=== PATIENT | female | born 1985 | race Caucasian/White ===

== ENCOUNTER 2017-05-15 01:29 | Inpatient (IN) ==
--- OUTSIDE RECORDS SUMMARY | 2017-05-15 01:33 | External Medical Summary | Continuity of Care Document ---
:1985 Author Organization [facility] Address [address] [place], [place] [id number] Phone Care Team Providers Name Role Phone Tristan Wilks MD, FAAFP Unavailable Unavailable Allergies, Adverse Reactions, Alerts Substance Reaction Severity Status No Known Drug Allergies Unknown Active Medications Medication Instructions Dosage Effective Dates Status Comments (start - stop) ferrous sulfate take 1 tablet by 325 MG - Active 325 mg (65 mg oral route 2 times iron) tablet every day Tums 200 mg - Active calcium (500 mg) chewable tablet Prena1 30 mg take 1 capsule by Not Available - Active iron-1 mg-200 mg oral route every capsule day with a meal Tylenol 325 mg take 1 tablet by - Active tablet oral route every 4 hours as needed Problems Condition Effective Dates (start - stop) Clinical Status Follow-Up, Routine - Encounter for suprvsn of normal - , third trimester 31 weeks gestation of - Encounter for suprvsn of normal - , second trimester 16 weeks gestation of - Encntr screen for infections w sexl - mode of transmiss Encounter for screening for oth - infec/parastc diseases Encounter for suprvsn of normal - , first trimester Encounter for screening of - mother 13 weeks gestation of - Routine Care, Primagravida 39 weeks gestation of - Encounter for suprvsn of normal - , second trimester 25 weeks gestation of - Encounter for suprvsn of normal - , second trimester 21 weeks gestation of - Encounter for suprvsn of normal - , third trimester 34 weeks gestation of - Encounter for suprvsn of normal - , third trimester 29 weeks gestation of - Encounter for screening of - mother 21 weeks gestation of - Threatened , Antepartum - Active Active Procedures Procedure Date Immuniz admnin, 1 vac, sngl/combo 19 Yrs + TDAP VACCINE >7 IM OB Visit No Charge Results Test Name Date and Time Measure Units Reference Range Abnormal Flag Comments Unknown Advance Directives Directive Yes / No Effective Date File Name Unknown Encounters Encounter Practice Location Reason(s) Diagnoses Date Provider Care Team Description For Visit Members Jamar Brewer Encounter for Sobbing Referring In Womens suprvsn of normal 0-201 [place]. Provider: Health HARRIET, , third 7 [address] [id number] weeks Medical Enrique R, 1522, gestation of Center [address] [place] [address], [address] [id number], 120, Bhavik 120, [place] Brewer, tel: [place], [phone], [id number]. [place]. tel: tel: [phone] Jamar Brewer Encounter for Oct-1 Enrique Referring In Womens suprvsn of normal 3-201 [place]. 700 Provider: Health HARRIET, , third 7 Medical [place] [address] [email or web address] weeks [place] [address] 1522, gestation of Bhavik Pena, 120, Center [place] Amaya, [facility] 120, [id number], [place], [id number] [place], tel: , [place]. [phone]. [id number] tel: tel: [phone] Jamar Brewer Sep-2 Enrique In Womens 9-201 [place]. 700 Health HARRIET, 7 Medical [address] Box Center 1522, Bhavik Pena, 120, [place], [id number], [place], [place] [id number] tel: , [place]. tel: [phone] Jamar Brewer Encounter for Sep-2 Enrique Referring In Womens suprvsn of normal 8-201 [place]. 700 Provider: Health HARRIET, , third 7 Medical [place] [address] Box [id number] weeks [facility], 700 1522, gestation of Bhavik Pena, 120, Center [place] Amaya, [facility] 120, , [place], [place] [id number] [place], tel: , [place]. [id number]. tel: tel:[phone] Jamar Brewer Encounter for Aug-3 Enrique Referring In Womens suprvsn of normal 1-201 [place]. 700 Provider: Health HARRIET, , second 7 Medical Barbara [address] Box [email or web address] weeks [facility], [facility] 1522, gestation of Bhavik Pena, 120, Center [place] Amaya, [facility] 120, , [place] [id number] [place], tel:+ , [place]. [id number]. tel: tel:+ [phone] Jamar Brewer Encounter for Aug-0 Enrique Referring In Womens suprvsn of normal 3-201 [place]. 700 Provider: Saeed LARIOS, , second 7 Medical [place] PO Box weeks [facility], [facility] 1522, gestation of Bhavik Pena, 120, Center [place] Amaya, [facility] 120, , [place], [place] [id number] [place], tel: , [place]. [id number]. tel: tel:[phone] Jamar Brweer Encounter for Aug-0 Enrique Referring In Womens Ultrasound 3-201 [place]. 700 Provider: Saeed LARIOS, screening of 7 Medical [place] [address] [id number] weeks [facility], 700 1522, gestation of Bhavik Pena, 120, Center [place] Amaya, Bhavik 120, [id number], [place], [place] [id number] [place], tel:[phone] , [place]. [id number]. tel: tel:+ [phone] Jamar Brewer Encounter for Louis-2 Enrique Referring In Womens suprvsn of normal 7-201 [place]. 700 Provider: Saeed LARIOS, , second 7 Medical Barbara [address] [id number] weeks Center [facility], 700 1522, gestation of Dr, Bhavik Andino, 120, Center [address] [place], [place], [place] [address], [id number], [place], [id number] [place], tel: , [place]. [id number]. tel: tel:[phone] Jamar Brewer Encntr screen for Louis-0 Enrique Referring In Womens infections w sexl 8-201 [place]. 700 Provider: Saeed LARIOS, mode of 7 Medical [place] PO Box transmissEncounte [facility], 700 1522, r for screening Bhavik Pena, for oth 120, Center Dr [place], infec/parastc Brewer, [place] [address], [id number], [facility] for suprvsn of [id number] [place], tel: normal , , [place]. [id number]. first tel: tel: trimesterEncounte [phone] r for screening of [id number] weeks gestation of Jamar Brewer Nov-1 Enrique Referring In Womens Follow-Up, 3-201 [place]. 700 Provider: Saeed LARIOS, Routine 5 Medical [place] PO Box [facility], 700 1522, Dr [facility], 120, Center [address] [place], [place], [facility] 120, [id number], [place], [id number] [place], tel: , [place]. [id number]. tel: tel: [phone] Jamar Brewer Routine Care, Oct-0 Enrique Referring In Womens [id number] 1-201 [place]. 700 Provider: Saeed LARIOS, weeks gestation 5 Medical [place] PO Box of [facility], 700 1522, Bhavik Pena, 120, Center [place] Amaya, [facility] 120, [id number], [place], [id number] [place], tel: , [place]. [id number]. tel: tel: [phone] [facility] Sep-0 Enrique Referring In Womens 9-201 [place]. 700 Provider: Health [place], 5 [facility] Enrique R, 1522, , [address], 120, [facility] [id number], [place], [facility] 120, [place] [id number] [place], tel: , [place]. [place], tel: [phone]. [phone] tel:[phone] [facility] [place] Jul-2 Enrique Referring In Womens 5-201 [place]. 700 Provider: Health [place], [facility] [address] [place], 700 1522, , [facility], [facility], [place] Amaya, [facility] 120, [id number], [place], [id number] [place], tel: , [place]. [id number]. tel: tel: [phone] [facility] [place] Jul- Jaye Referring In Womens 1-201 [facility]. Provider: Health HARRIET, [address] [place] [address], 700 1522, [place] [address], [facility] Dr S[place], 120, Bhavik 120, [id number], [place] Brewer, [place], [place], tel: [phone]. , [place]. tel: tel: [phone] Family History Family Member Diagnosis Age At Onset Maternal Grandfather Diabetes mellitus No family history of Epilepsy No family history of Ovarian Cancer No family history of Colon Cancer Paternal Grandmother Uterine Cancer No family history of Osteoporosis No family history of Breast Cancer Mother Hypertension Maternal Grandmother Stroke No family history of Cardiovascular Disease No family history of Kidney Disease Maternal Grandmother Hypertension No family history of Thyroid Disorder No family history of Lung Disease Immunizations Vaccine Date Status Comments Influenza, injectable, completed Source: New Immunization Record quadrivalent, preservative free, 3 yrs or older Tdap completed Source: New Immunization Record Tdap completed Source: New Immunization Record Payers Payer name Insurance type Covered republican ID Authorization(s) [place] [id number] [place] [id number] [place] [id number] [place] [id number] Social History Type Description Quantity Date Captured Alcohol Use Details No Caffeine Use Details Unknown Tobacco Use Status Unknown Smoking Status Never smoker Vital Signs Date / Height Weight BMI Pulse Blood Temperature Respiratory Body Head BMI Time: Rate Pressure Rate Surface Circumference percentile Area 146.20 36.5 124/ lbs 9 mm[Hg] 2:57 kg/m PM eter (2) Chief Complaint And Reason For Visit Unknown Chief Complaint And Reason For Visit Reason For Referral Reason For Referral Unknown Plan Of Care Date Type Action Status Appointment Sreedhar Lou BOOKED Appointment Sreedhar Lou BOOKED Appointment Sreedhar Lou BOOKED Appointment Sreedhar Lou BOOKED Future Order: Lab Order Pap Smear With HPV Reflex If ASCUS Ordered (WPMPap1) Future Order: Radiology Order Complete OB Ultrasound > 14 Ordered Weeks ([id number]) Date Type Problem Goal Intervention Status Start Date Unknown. History Of Present Illness Encounter Date Complaint History Of Present Illness This patient has no known history of present illness Functional Status Encounter Date Functional Assessment Cognitive Assessment Unknown Medications Administered Medication Instructions Dosage Effective Dates (start - stop) Status Comments Drug Treatment Unknown Instructions Date Instruction Additional Information HIV and other routine tests risk factors identified by history anticipated course of care nutrition and weight gain counseling, special diet toxoplasmosis precautions (cats / raw meat) sexual activity exercise indications for ultrasound influenza vaccine environmental / work hazards travel use of any medications (including supplements, vitamins, herbs, OTC drugs) domestic violence seat belt use childbirth classes / hospital facilities hospital registration genetic testing Zika virus assessment & precautions risk factors identified by history anticipated course of care nutrition and weight gain counseling, special diet toxoplasmosis precautions (cats / raw meat) HIV and other routine tests sexual activity exercise indications for ultrasound influenza vaccine environmental / work hazards travel use of any medications (including supplements, vitamins, herbs, OTC drugs) domestic violence seat belt use childbirth classes / hospital facilities hospital registration genetic testing new ob handbook
[2017-05-15] MEDS ORDERED: CALCIUM CARBONATE Chewable 500mg TABLET PO PRN ×2 (01:34→10:42)
[2017-05-15] MEDS ORDERED: ACETAMINOPHEN 500 MG TABLET PO PRN ×2 (01:34→10:42)
[2017-05-15] MEDS ORDERED: MAG-AL + SIM ORAL LIQUID 30ml PO PRN ×2 (01:34→10:42)
[2017-05-15] MEDS ORDERED: METHYLERGONOVINE 0.2 MG/ML INJECTION IM PRN (01:34)
[2017-05-15] MEDS ORDERED: LIDOCAINE 1% (10mg/ml) 2mL INJ PF SDV ID PRN (01:34)
[2017-05-15] MEDS ORDERED: CARBOPROST 250 MCG/ML INJECTION IM PRN (01:34)
--- OUTSIDE RECORDS SUMMARY | 2017-05-15 01:34 | External Medical Summary | Continuity of Care Document ---
:1985 Author Organization [facility] Address [address] [place], [place] [id number] Phone Care Team Providers Name Role Phone Tristan Wilks MD, FAAFP Unavailable Unavailable Allergies, Adverse Reactions, Alerts Substance Reaction Severity Status No Known Drug Allergies Unknown Active Medications Medication Instructions Dosage Effective Dates Status Comments (start - stop) Tums 200 mg - Active calcium (500 [...] 39 weeks gestation of - Encounter for screening of - mother 21 weeks gestation of - Threatened , Antepartum - Active Active Procedures Procedure Date OB Visit No Charge Aug-03-2017 Results Test Name Date and Time Measure Units Reference Range Abnormal Flag Comments Unknown Advance Directives Directive Yes / No Effective Date File Name Unknown Encounters Encounter Practice Location Reason(s) Diagnoses Date Provider Care Team Description For Visit Members Jamar Brewer Encounter for Aug-0 Enrique Referring In Womens suprvsn of normal 3-201 [place]. 700 Provider: Saeed LARIOS, , second 7 Medical [place] [address] [id number] weeks [facility], 700 1522, gestation of Bhavik Pena, 120, [place] Amaya, [facility] 120, , [place], [id number] [place], tel: , [place]. [id number]. tel: tel: [phone] Jamar Brewer Encounter for Aug-0 Enrique Referring In Womens Ultrasound 3-201 [place]. 700 Provider: Saeed LARIOS, screening of 7 Medical [place] [address] Box [id number] weeks [facility], [facility] 1522, gestation of Bhavik Pena, 120, [place] Amaya, [facility] 120, , [place], [id number] [place], tel: , [place]. [id number]. tel: tel: [phone] Jamar Brewer Encounter for Louis-2 Enrique Referring In Womens suprvsn of normal 7-201 [place]. 700 Provider: Saeed LARIOS, , second 7 Medical [place] [address] Box [id number] weeks [facility], [facility] 1522, gestation of Bhavik Pena, 120, [place] Amaya, [facility] 120, , [place], [id number] [place], tel: , [place]. [id number]. tel: tel:[phone] Jamar Brewer Encntr screen for Louis-0 Enrique Referring In Womens infections w sexl 8-201 [place]. 700 Provider: Saeed LARIOS, mode of 7 Medical [place] PO Box transmissEncounte [facility], 700 1522, r for screening Bhavik Pena, for oth 120, [place] Dr [place], infec/parastc [place], [facility] 120, [id number], diseasesEncounter [place], [place], for suprvsn of [id number] [place], tel: normal , , [place]. [id number]. first tel: [facility]: [facility] [phone] r for screening of [id number] weeks gestation of Jamar Brewer Apr- Enrique Referring In Womens Follow-Up, 3- [place]. 700 Provider: Saeed LARIOS, Routine 5 Medical [place] PO Box [facility], [facility] 1522, , [facility], 120, [place] [address] [place], [place], [facility] 120, [id number], [place], [place], [id number] [place], tel: , [place]. [id number]. tel: tel: [phone] Jamar Brewer Routine Care, Mar-0 Enrique Referring In Womens [id number] 1- [place]. 700 Provider: Saeed LARIOS, weeks gestation 5 Medical [place] PO Box of [facility], [facility] 1522, , [facility], 120, [place] Amaya, [facility] 120, [id number], [place], Brew[place], [id number] [place], tel: , [place]. [id number]. tel: tel: [phone] Jamar Brewer Sep-0 Enrique Referring In Womens 9-201 [place]. 700 Provider: Health HARRIET, 5 [facility] Enrique R, 1522, , [address], 120, Medical [place], [place] [id number], [place], [facility] 120, [place] [id number] [place], tel: , [place]. [place], tel: [phone]. [phone] tel:[phone] Jamar Brewer Jul-2 Enrique Referring In Womens -201 [place]. 700 Provider: Health HARRIET, 5 Medical [place] PO Box [facility], [facility] 1522, , [facility], 120, Center [place] Amaya, [facility] 120, [id number], [place], [id number] [place], tel: , [place]. [phone]. [id number] tel: tel: [phone] Jamar Brewer Jaye Referring In Womens 1-201 [place]. Provider: Saeed LARIOS, 5 700 [place] [address] Box Medical [place], 700 1522, [place] [address], [address] [place] [address] [place], 120, Bhavik 120, [id number], [place] Brewer, [place], tel: [phone]. [phone] , . tel: tel: [phone] Family History Family Member Diagnosis Age At [...] Lung Disease Immunizations Vaccine Date Status Comments Tdap completed Source: New Immunization Record Payers Payer name Insurance type Covered alliance party ID Authorization(s) [facility] [id number] [facility] [id number] Social History Type Description Quantity Date Captured Alcohol Use Details No Caffeine Use Details Unknown Tobacco Use Status Unknown Smoking Status Never smoker Vital Signs Date / Height Weight BMI Pulse Blood Temperature Respiratory Body Head BMI Time: Rate Pressure Rate Surface Circumference percentile Area 132.20 33.0 120/ lbs 9 mm[Hg] 4:23 kg/m PM eter (2) Chief Complaint And Reason For Visit Unknown Chief Complaint And Reason For Visit Reason For Referral Reason For Referral Unknown Plan Of Care Date Type Action Status Appointment Sreedhar Lou BOOKED Future Order: Lab Order Pap Smear With HPV Reflex If ASCUS Ordered (WPMPap1) Future Order: Radiology Order Complete OB Ultrasound > 14 Ordered Weeks ([id number]) Date Type Problem Goal Intervention Status Start [...]
--- OUTSIDE RECORDS SUMMARY | 2017-05-15 01:34 | External Medical Summary | Continuity of Care Document ---
:1984 Author Organization [facility] Address [address] [place], [place] [id number] Phone Care Team Providers Name Role Phone [...] Antepartum - Active Active Procedures Procedure Date Unknown Results Test Name Date and Time Measure Units Reference Range Abnormal Flag Comments Unknown Advance Directives Directive Yes / No Effective Date File Name Unknown Encounters Encounter Practice Location Reason(s) Diagnoses Date Provider Care Team Description For Visit Members Jamar Brewer Encounter for Mar- Enrique Referring In Womens suprvsn of normal 3-201 [place]. 700 Provider: Saeed LARIOS, , third 7 Medical [place] PO Box weeks [facility], [facility] 1522, gestation of Bhavik Pena, 120, [address] [place], [place], [place] [address], [id number], [place], [place], [id number] [place], tel:+ , [place]. [id number]. tel: tel: [phone] Jamar Brewer Sep-2 Enrique In Womens 9-201 [place]. 700 Saeed LARIOS, 7 Medical PO Box Center 1522, Bhavik Pena, 120, [place], [id number], [place], [place] [id number] tel: , [place]. tel: [phone] Jamar Brewer Encounter for Sep-2 Enrique Referring In Womens suprvsn of normal 8-201 [place]. 700 Provider: Health HARRIET, , third 7 Medical [place] PO Box [id number] weeks [facility], [facility] 1522, gestation of Bhavik Pena, 120, Center [place] Amaya, [facility] 120, [id number], [place], [id number] [place], tel:2 , [place]. [id number]. tel: tel: [phone] Jamar Brewer Encounter for Jan- Enrique Referring In Womens suprvsn of normal 1-201 [place]. 700 Provider: Health HARRIET, , second 7 Medical [place] PO Box [id number] weeks [facility], [facility] 1522, gestation of Bhavik Pena, 120, Center [facility] [facility], [id number], [place], [id number] [place], tel:+ , [place]. [id number]. tel: tel:[phone] Jamar Brewer Encounter for Aug-0 Enrique Referring In Womens suprvsn of normal 3-201 [place]. 700 Provider: Saeed LARIOS, , second 7 Medical [place] PO Box [id number] weeks [facility], [facility] 1522, gestation of Bhavik Pena, 120, [place] Amaya, [facility] 120, , [place], [id number] [place], tel:+ , [place]. [id number]. tel: tel:[phone] Brewer Encounter for Aug-0 Enrique Referring In Womens Ultrasound 3-201 [place]. 700 Provider: Saeed LARIOS, screening of 7 Medical [place] PO Box [id number] weeks [facility], [facility] 1522, gestation of Bhavik Pena, 120, [place] Amaya, [facility] 120, [id number], [place], [id number] [place], tel:+ , [place]. [id number]. tel: tel:[phone] Jamar Brewer Encounter for Louis-2 Enrique Referring In Womens suprvsn of normal 7-201 [place]. 700 Provider: Saeed LARIOS, , second 7 Medical Barbara PO Box [id number] weeks [place] [address] 1522, gestation of Bhavik Pena, 120, [place] Amaya, [facility] 120, [id number], [place], [id number] [place], tel:+ , [place]. [id number]. tel: tel:[phone] Brewer Encntr screen for Louis-0 Enrique Referring In Womens infections w sexl 8-201 [place]. 700 Provider: Saeed LARIOS, mode of 7 Medical [place] PO Box transmissEncounte [facility], 700 1522, r for screening , [facility] Sina, for oth 120, Center Dr [place], infec/parastc Brewer, [facility] 120, [id number], diseasesEncounter [place], [place], for suprvsn of [id number] [place], tel: normal , , [place]. [id number]. first tel: tel: trimesterEncounte [phone] r for screening of [id number] weeks gestation of Jamar Brewer Enrique Referring In Womens Follow-Up, 3- [place]. 700 Provider: Health HARRIET, Routine 5 Medical Barbara PO Box [facility], 700 1522, Dr [facility] Javi Andino, 120, Center Dr [place], [place], [facility] 120, [id number], [place], [place], [id number] [place], tel: , [place]. [id number] tel: tel: [phone] Jamar Brewer Routine Care, Enrique Referring In Womens [id number] 1-201 [place]. 700 Provider: Health HARRIET, weeks gestation 5 Medical Barbara PO Box of [facility], 700 1522, Dr [facility] Sina, 120, Center [address] S[place], [place], [facility] 120, [id number], [place], [place], [id number] [place], tel: , [place]. [id number] tel: tel: [phone] Jamar Brewer Sep-0 Enrique Referring In Womens 9-201 [place]. 700 Provider: Health HARRIET, 5 [facility] [place] PO Box [place] Enrique R, 1522, , [facility] Denae Andino, 120, Medical [place], [place] , [place], [facility] 120, [place] [id number] [place], tel: , [place]. [place] tel: [phone]. [phone] tel:[phone] Jamar Brewer Fe-2 Enrique Referring In Womens 5-201 [place]. 700 Provider: Health [place], 5 Medical Barbara PO Box Center [place], 700 1522, , [facility] Medical Sina, 120, [address] [place], [place], Bhavik 120, [id number], [place], [id number] [place], tel: , . [phone]. [id number] tel: tel: [phone] Jamar Brewer Jaye Referring In Womens 1-201 [place]. Provider: [facility], 5 700 [facility], 700 1522, [place] [address], [facility] Dr SMILEY, 120, Bhavik 120, [id number], [place] Brewer, [place], [place], tel: [phone]. [id number] , . tel: tel: [phone] Family History Family Member Diagnosis Age At [...] Comments Tdap completed Source: New Immunization Record Tdap completed Source: New Immunization Record Payers Payer name Insurance type Covered libertarian ID Authorization(s) [facility] [id number] [facility] [id number] [facility] [id number] Social History Type Description Quantity Date Captured Unknown Vital Signs Date / Height Weight BMI Pulse Blood Temperature Respiratory Body Head BMI Time: Rate Pressure Rate Surface Circumference percentile Area Unknown Chief Complaint And Reason For Visit Unknown Chief Complaint And Reason For Visit Reason For Referral Reason For Referral Unknown Plan Of Care Date Type Action Status Appointment Sreedhar Lou BOOKED Future Order: Lab Order Pap Smear With HPV Reflex If ASCUS Ordered (WPMPap1) Future Order: Radiology Order Complete OB Ultrasound > 14 Ordered Weeks ([id number]) Date Type Problem Goal Intervention Status Start [...]
--- OUTSIDE RECORDS SUMMARY | 2017-05-15 01:34 | External Medical Summary | Continuity of Care Document ---
:1985 Author Organization [facility] Address [address] [place], [place] [id number] Phone Care Team Providers Name Role Phone [...] Care, Primagravida 39 weeks gestation of - 21 weeks gestation of - Encounter for screening of - mother Encounter for suprvsn of normal - , second trimester 21 weeks gestation of - Threatened , Antepartum - Active Active Procedures Procedure Date OB Visit No Charge Results Test Name Date and Time Measure Units Reference Range Abnormal Flag Comments Unknown Advance Directives Directive Yes / No Effective Date File Name Unknown Encounters Encounter Practice Location Reason(s) Diagnoses Date Provider Care Team Description For Visit Members Jamar Brewer Encounter for Enrique Referring In Womens suprvsn of normal 1-201 [place]. 700 Provider: Saeed LARIOS, , second 7 Medical Barbara [address] [id number] weeks [facility], [facility] 1522, gestation of Bhavik Pena, 120, Center [place] Amaya, [facility] 120, [id number], [place]LEY, [id number] [place], tel: , [place]. [id number]. tel: tel: [phone] Jamar Brewer Encounter for 0 Enrique Referring In Womens suprvsn of normal 3-201 [place]. 700 Provider: Saeed LARIOS, , second 7 Medical Barbara [address] [id number] weeks [facility], [facility] 1522, gestation of Bhavik Pena, 120, Center [place] Amaya, [facility] 120, [id number], [place] S[place]LEY, [id number] [place], tel: , [place]. [id number]. tel: tel: [phone] Jamar Brewer 21 weeks Jan-0 Enrique Referring In Womens Ultrasound gestation of 3-201 [place]. 700 Provider: Saeed LARIOS, pregnancyEncounte 7 Medical Barbara PO Box r for [facility], [facility] 1522, screening of Bhavik Pena, mother 120, Center [place] Amaya, [facility] 120, [id number], [place], [id number] [place], tel: , [place]. [id number]. tel: tel:[phone] Jamar Brewer Encounter for Nov-2 Enrique Referring In Womens suprvsn of normal 7-201 [place]. 700 Provider: Saeed LARIOS, , second 7 Medical [place] [address] [id number] weeks [facility], 700 1522, gestation of Bhavik Pena, 120, [facility] [place] Amaya, [facility] 120, [id number], [place], Brewer, [id number] [place], tel: , [place]. [id number]. tel: tel:[phone] Jamar Brewer Encntr screen for Louis-0 Enrique Referring In Womens infections w sexl 8-201 [place]. 700 Provider: Health HARRIET, mode of 7 Medical [place] [facility] 1522, r for screening , [facility], for oth 120, [address] SMILEY, infec/parastc Brewer, [facility] 120, , diseasesEncounter [place], Brewer, for suprvsn of [id number] [place], tel: normal , , [place]. [id number]. first tel: tel: trimesterEncounte [phone] r for screening of [id number] weeks gestation of Jamar Brewer Nov- Enrique Referring In Womens Follow-Up, 3-201 [place]. 700 Provider: Saeed LARIOS, Routine 5 Medical [place] PO Box [facility], [facility] [address], , [facility], 120, Center [place] Amaya, [facility] 120, [id number], [place], Brewer, [id number] [place], tel: , [place]. [id number]. tel: tel: [phone] Jamar Brewer Routine Care, Oct-0 Enrique Referring In Womens [id number] 1-201 [place]. 700 Provider: Saeed LARIOS, weeks gestation 5 Medical Barbara PO Box of [facility], 700 1522, , [facility], 120, Center [place] Amaya, [facility] 120, [id number], [place]LEY, [id number] [place], tel: , [place]. [id number]. tel: tel:[phone] Jamar Brewer Sep-0 Enrique Referring In Womens 9-201 [place]. 700 Provider: Saeed LARIOS, 5 Medical [place] PO Box [place] Enrique R, 1522, , [facility] 700 Sina, 120, Medical [place]man SMILEY, [place] [id number], [place], [facility] 120, [place] [id number] [place], tel: , . [place], tel: [phone] tel:[phone] Jamar Brewer Enrique Referring In Womens 5-201 [place]. 700 Provider: On license of [facility], Medical Barbara PO Box [place] Jaye, 700 1522, , [facility] Medical Sina, 120, [place] [address] [place], [place], [facility] 120, [id number], [place], [id number] [place], tel: , . [id number]. tel: tel: [phone] Jamar Brewer Jaye Referring In Womens 1-201 [place]. Provider: On license of [facility], 700 Barbara PO [facility], 700 1522, [place] [address], [facility] Dr [place], 120, Bhavik 120, [id number], [place] Brewer, [place], tel: [phone]. , [place]. tel: tel: [phone] Family History Family Member Diagnosis Age At [...] Record Payers Payer name Insurance type Covered constitution party ID Authorization(s) [facility] [id number] [facility] [id number] Social History Type Description Quantity Date Captured Alcohol Use Details No Caffeine Use Details Unknown Tobacco Use Status Unknown Smoking Status Never smoker Vital Signs Date / Height Weight BMI Pulse Blood Temperature Respiratory Body Head BMI Time: Rate Pressure Rate Surface Circumference percentile Area 139.80 34.9 118/70 2017 lbs 9 mm[Hg] 4:54 kg/m PM eter (2) Chief Complaint And Reason For Visit Unknown Chief Complaint And Reason For Visit Reason For Referral Reason For Referral Unknown Plan Of Care Date Type Action Status Appointment Sreedhar Lou BOOKED Future Order: Lab Order Pap Smear With HPV Reflex If ASCUS Ordered ([id number]) Future Order: Radiology Order Complete OB Ultrasound > 14 Ordered Weeks ([id number]) Date Type Problem Goal Intervention Status Start [...]
--- OUTSIDE RECORDS SUMMARY | 2017-05-15 01:34 | External Medical Summary | Referral Summary ---
:1985 Author Organization [facility] [address] [place] [address] Care Team Providers Name Role Phone Tristan Wilks Primary Care Physician Encounter VC Date(s): 07/02/15 - 07/02/15 [facility] [address] [place] [address] [place] Discharge Diagnosis: Candidiasis of anus Discharge Diagnosis: Vaginal discharge Discharge Diagnosis: Abdominal pain, lower Discharge Diagnosis: Low back pain Discharge Disposition: 01-Home or Self Care Attending Physician: Shruthi Vera PA-C Admitting Physician: Shruthi Vera PA-C Vital Signs Most recent to oldest [Reference Range]: 1 Temperature Tympanic [36.6-38.1 degC] 36.5 degC *LOW* (07/02/15 3:04 PM) Peripheral Pulse Rate [60-100 bpm] 88 bpm (07/02/15 3:04 PM) Respiratory Rate [14-20 br/min] 16 br/min (07/02/15 3:04 PM) Blood Pressure [90-140/60-90 mmHg] 124/78 mmHg (07/02/15 3:04 PM) Problem List Condition Effective Dates Status Health Status Informant Chronic chest wall pain(Confirmed) Active Chronic neck pain(Confirmed) Active Allergies, Adverse Reactions, Alerts No Known Medication Allergies Medications nystatin 100,000 units/g topical cream 1 ashutosh, Topical, BID, X 14 days, # 15 g, 0 Refill(s), Pharmacy: [id number] Start Date: 07/02/15 Stop Date: 07/16/15 Status: OrderedSprintec tabs, Oral, Daily, 0 Refill(s) Start Date: 06/18/15 Status: Ordered Results Urinalysis Most recent to oldest [Reference Range]: 1 UA Color Yellow (07/02/15 3:45 PM) UA Appear Clear (07/02/15 3:45 PM) UA pH [5.0-8.0] 6.0 (07/02/15 3:45 PM) UA Leuk Est [Negative] Negative (07/02/15 3:45 PM) UA Nitrite [Negative] Negative (07/02/15 3:45 PM) UA Protein [Negative] Negative (07/02/15 3:45 PM) UA Glucose [Negative] Negative (07/02/15 3:45 PM) UA Ketones [Negative] Trace *ABN* (07/02/15 3:45 PM) UA Urobilinogen [<1.0 mg/dL] 0.2 mg/dL (07/02/15 3:45 PM) UA Bili [Negative] Negative (07/02/15 3:45 PM) UA Blood [Negative] Trace *ABN* (07/02/15 3:45 PM) UA Spec Grav [1.003-1.030] 1.026 (07/02/15 3:45 PM) Type Clean Catch (07/02/15 3:45 PM) Immunizations Vaccine Date Refusal Reason tetanus/diphth/pertuss (Tdap) adult/adol 09/17/11 influenza virus vaccine, inactivated 04/04/14 Procedures No data available for this section Social History Social History Type Response Smoking Status Never smoker Assessment and Plan Extracted from: Title: Ambulatory Patient Education Author: Shruthi Vera PA-C Date: Family Medicine Back Pain, Adult Low back pain is very common. About 1 in 5 people have back pain.The cause of low back pain is rarely dangerous. The pain often gets better over time. About half of people with a sudden onset of back pain feel better in just 2 weeks. About 8 in 10 people feel better by 6 weeks. CAUSES Some common causes of back pain include: Strain of the muscles or ligaments supporting the spine. Wear and tear (degeneration) of the spinal discs. Arthritis. Direct injury to the back. DIAGNOSIS Most of the time, the direct cause of low back pain is not known.However, back pain can be treated effectively even when the exact cause of the pain is unknown.Answering your caregiver's questions a bout your overall health and symptoms is one of the most accurate ways to make sure the cause of your pain is not dangerous. If your caregiver needs more information, he or she may order lab work or atif ging tests (X-rays or MRIs).However, even if imaging tests show changes in your back, this usually does not require surgery. HOME CARE INSTRUCTIONS For many people, back pain returns.Since low back pain is rarely dangerous, it is often a condition that people can learn to manageon their own. Remain active. It is stressful on the back to sit or liquor inspector one place. Do not sit, drive, or liquor inspector one place for more than 30 minutes at a time. Take short walks on level surfaces as soon as p ain allows.Try to increase the length of time you walk each day. Do not stay in bed.Resting more than 1 or 2 days can delay your recovery. Do not avoid exercise or work.Your body is made to move.It is not dangerous to be active, even though your back may hurt.Your back will likely heal faster if you return to being active before your pain is gone. Pay attention to your body when you bend and lift. Many people have less discomfortwhen lifting if they bend their knees, keep the load close to their bodies,and avoid twisting. Often, the mo st comfortable positions are those that put less stress on your recovering back. Find a comfortable position to sleep. Use a firm mattress and lie on your side with your knees slightly bent. If you lie on your back, put a pillow under your knees. Only take wqyz-bjl-ryxkodz or prescription medicines as directed by your caregiver. Pnls-ogq-nlmffdx medicines to reduce pain and inflammation are often the most helpful.Your caregiver may prescr fausto muscle relaxant drugs.These medicines help dull your pain so you can more quickly return to your normal activities and healthy exercise. Put ice on the injured area. Put ice in a plastic bag. Place a towel between your skin and the bag. Leave the ice on for 15-20 minutes, 03-04 times a day for the first 2 to 3 days. After that, ice and heat may be alternated to reduce pain and spasms. Ask your caregiver about trying back exercises and gentle massage. This may be of some benefit. Avoid feeling anxious or stressed.Stress increases muscle tension and can worsen back pain.It is important to recognize when you are anxious or stressed and learn ways to manage it.Exercise is a great option. SEEK MEDICAL CARE IF: You have pain that is not relieved with rest or medicine. You have pain that does not improve in 1 week. You have new symptoms. You are generally not feeling well. SEEK IMMEDIATE MEDICAL CARE IF: You have pain that radiates from your back into your legs. You develop new bowel or bladder control problems. You have unusual weakness or numbness in your arms or legs. You develop nausea or vomiting. You develop abdominal pain. You feel faint. Document Released: 05/23/2006 Document Revised: 11/21/2012 Document Reviewed: 09/24/2014 [employer] Patient Information 2015 [employer]. This information is not intended to replace advice given to you by your health care provider. Make sure you discuss any questions you have with your health care provider. Suzi Infection A Suzi infection (also called yeast, fungus, and Monilia infection) is an overgrowth of yeast that can occur anywhere on the body. A yeast infection commonly occurs in warm, moist body areas. Usually , the infection remains localized but can spread to become a systemic infection. A yeast infection may be a sign of a more severe disease such as diabetes, leukemia, or AIDS. A yeast infection can occur in both men and women. In women, Suzi vaginitis is a vaginal infection. It is one of the most common causes of vaginitis. Men usually do not have symptoms or know they hav e an infection until other problems develop. Men may find out they have a yeast infection because their sex partner has a yeast infection. Uncircumcised men are more likely to get a yeast infection than circumcised men. This is because the uncircumcised glans is not exposed to air and does not remain as dry as that of a circumcised glans. Older adults may develop yeast infections around dentures. CAUSES Women Antibiotics. Steroid medication taken for a long time. Being overweight (obese). Diabetes. Poor immune condition. Certain serious medical conditions. Immune suppressive medications for organ transplant patients. Chemotherapy. . Menstruation. Stress and fatigue. Intravenous drug use. Oral contraceptives. Wearing tight-fitting clothes in the crotch area. Catching it from a sex partner who has a yeast infection. Spermicide. Intravenous, urinary, or other catheters. Men Catching it from a sex partner who has a yeast infection. Having oral or anal sex with a person who has the infection. Spermicide. Diabetes. Antibiotics. Poor immune system. Medications that suppress the immune system. Intravenous drug use. Intravenous, urinary, or other catheters. SYMPTOMS Women Thick, white vaginal discharge. Vaginal itching. Redness and swelling in and around the vagina. Irritation of the lips of the vagina and perineum. Blisters on the vaginal lips and perineum. Painful sexual intercourse. Low blood sugar (hypoglycemia). Painful urination. Bladder infections. Intestinal problems such as constipation, indigestion, bad breath, bloating, increase in gas, diarrhea, or loose stools. Men Men may develop intestinal problems such as constipation, indigestion, bad breath, bloating, increase in gas, diarrhea, or loose stools. Dry, cracked skin on the penis with itching or discomfort. Jock itch. Dry, flaky skin. Athlete's foot. Hypoglycemia. DIAGNOSIS Women A history and an exam are performed. The discharge may be examined under a microscope. A culture may be taken of the discharge. Men A history and an exam are performed. Any discharge from the penis or areas of cracked skin will be looked at under the microscope and cultured. Stool samples may be cultured. TREATMENT Women Vaginal antifungal suppositories and creams. Medicated creams to decrease irritation and itching on the outside of the vagina. Warm compresses to the perineal area to decrease swelling and discomfort. Oral antifungal medications. Medicated vaginal suppositories or cream for repeated or recurrent infections. Wash and dry the irritation areas before applying the cream. Eating yogurt with Lactobacillus may help with prevention and treatment. Sometimes painting the vagina with gentian daryl solution may help if creams and suppositories do not work. Men Antifungal creams and oral antifungal medications. Sometimes treatment must continue for 30 days after the symptoms go away to prevent recurrence. HOME CARE INSTRUCTIONS Women Use cotton underwear and avoid tight-fitting clothing. Avoid colored, scented toilet paper and deodorant tampons or pads. Do not douche. Keep your diabetes under control. Finish all the prescribed medications. Keep your skin clean and dry. Consume milk or yogurt with Lactobacillus-active culture regularly. If you get frequent yeast infections and think that is what the infection is, there are rvfa-ctx-valmyrk medications that you can get. If the infection does not show healing in 3 days, talk to your caregiver. Tell your sex partner you have a yeast infection. Your partner may need treatment also, especially if your infection does not clear up or recurs. Men Keep your skin clean and dry. Keep your diabetes under control. Finish all prescribed medications. Tell your sex partner that you have a yeast infection so he or she can be treated if necessary. SEEK MEDICAL CARE IF: Your symptoms do not clear up or worsen in one week after treatment. You have an oral temperature above 102 F (38.9 C). You have trouble swallowing or eating for a prolonged time. You develop blisters on and around your vagina. You develop vaginal bleeding and it is not your menstrual period. You develop abdominal pain. You develop intestinal problems as mentioned above. You get weak or light-headed. You have painful or increased urination. You have pain during sexual intercourse. MAKE SURE YOU: Understand these instructions. Will watch your condition. Will get help right away if you are not doing well or get worse. Document Released: 06/30/2005 Document Revised: 10/07/2014 Document Reviewed: 10/12/2010 [employer] Patient Information 2015 [employer] [facility]. This information is not intended to replace advice given to you by your health care provider. Make sure you discuss any questions you have with your health care provider. Obstetrics and Gynecology Abdominal Pain, Women Abdominal (stomach, pelvic, or belly) pain can be caused by many things. It is important to tell your doctor: The location of the pain. Does it come and go or is it present all the time? Are there things that start the pain (eating certain foods, exercise)? Are there other symptoms associated with the pain (fever, nausea, vomiting , diarrhea)? All of this is helpful to know when trying to find the cause of the pain. CAUSES Stomach: virus or bacteria infection, or ulcer. Intestine: appendicitis (inflamed appendix), regional ileitis (Crohn's disease), ulcerative colitis (inflamed colon), irritable bowel syndrome, diverticulitis (inflamed diverticulum of the colon), or cancer of the stomach or intestine. Gallbladder disease or stones in the gallbladder. Kidney disease, kidney stones, or infection. Pancreas infection or cancer. Fibromyalgia (pain disorder). Diseases of the female organs: Uterus: fibroid (non-cancerous) tumors or infection. Fallopian tubes: infection or tubal . Ovary: cysts or tumors. Pelvic adhesions (scar tissue). Endometriosis (uterus lining tissue growing in the pelvis and on the pelvic organs). Pelvic congestion syndrome (female organs filling up with blood just before the menstrual period). Pain with the menstrual period. Pain with ovulation (producing an egg). Pain with an IUD (intrauterine device, control) in the uterus. Cancer of the female organs. Functional pain (pain not caused by a disease, may improve without treatment). Psychological pain. Depression. DIAGNOSIS Your doctor will decide the seriousness of your pain by doing an examination. Blood tests. X-rays. Ultrasound. CT scan (computed tomography, special type of X-ray). MRI (magnetic resonance imaging). Cultures, for infection. Barium enema (dye inserted in the large intestine, to better view it with X-rays). Colonoscopy (looking in intestine with a lighted tube). Laparoscopy (minor surgery, looking in abdomen with a lighted tube). Major abdominal exploratory surgery (looking in abdomen with a large incision). TREATMENT The treatment will depend on the cause of the pain. Many cases can be observed and treated at home. Mzel-zsb-wdcqvog medicines recommended by your caregiver. Prescription medicine. Antibiotics, for infection. control pills, for painful periods or for ovulation pain. Hormone treatment, for endometriosis. Nerve blocking injections. Physical therapy. Antidepressants. Counseling with a psychologist or psychiatrist. Minor or major surgery. HOME CARE INSTRUCTIONS Do not take laxatives, unless directed by your caregiver. Take bnbc-sgc-gcsayeg pain medicine only if ordered by your caregiver. Do not take aspirin because it can cause an upset stomach or bleeding. Try a clear liquid diet (broth or water) as ordered by your caregiver. Slowly move to a bland diet, as tolerated, if the pain is related to the stomach or intestine. Have a thermometer and take your temperature several times a day, and record it. Bed rest and sleep, if it helps the pain. Avoid sexual intercourse, if it causes pain. Avoid stressful situations. Keep your follow-up appointments and tests, as your caregiver orders. If the pain does not go away with medicine or surgery, you may try: Acupuncture. Relaxation exercises (yoga, meditation). Group therapy. Counseling. SEEK MEDICAL CARE IF: You notice certain foods cause stomach pain. Your home care treatment is not helping your pain. You need stronger pain medicine. You want your IUD removed. You feel faint or lightheaded. You develop nausea and vomiting. You develop a rash. You are having side effects or an allergy to your medicine. SEEK IMMEDIATE MEDICAL CARE IF: Your pain does not go away or gets worse. You have a fever. Your pain is felt only in portions of the abdomen. The right side could possibly be appendicitis. The left lower portion of the abdomen could be colitis or diverticulitis. You are passing blood in your stools (bright red or black tarry stools, with or without vomiting). You have blood in your urine. You develop chills, with or without a fever. You pass out. MAKE SURE YOU: Understand these instructions. Will watch your condition. Will get help right away if you are not doing well or get worse. Document Released: 03/19/2008 Document Revised: 10/07/2014 Document Reviewed: 04/09/2010 [employer] Patient Information 2015 [employer]. This information is not intended to replace advice given to you by your health care provider. Make sure you discuss any questions you have with your health care provider. No follow up information was provided. Extracted from: Title: Office Visit Note Author: Shruthi Vera PA-C Date: 07/02/15 Assessment/Plan Abdominal pain, lower She is really not having any discomfort today. I recommended she try Ibuprofen 600-800mg TID routinely for 7-10 days, and then may take prn. If pain is continuing, and if swabs/U A treated appropriately, then suggested pelvic US. Ordered: Office Visit Level 3 Est 20826 Urinalysis with Culture if Indicated Candidiasis of anus Will try some Nystatin cream to this area, and hopefully with help with the itching. Keep area as dry aspossible. Ordered: Office Visit Level 3 Est 53718 Low back pain I think this is more of a muscular strain. Try the routine Ibuprofen as above and RTC if not improving. Rest as much as possible, and use proper lifting techniques. Ordered: Office Visit Level 3 Est 83969 Vaginal discharge Another wet prep checked today with vaginal culture as well. Will let pt know of results when available. Ordered: Genital Culture Office Visit Level 3 Est [id number] Orders: nystatin topical, 1 ashutosh, Topical, BID, X 14 days, # 15 g, 0 Refill(s) , [id number]
--- OUTSIDE RECORDS SUMMARY | 2017-05-15 01:34 | External Medical Summary | Continuity of Care Document ---
:1985 Author Organization [facility] [employer] [facility] Address [address] [place], [place] [id number] Phone Care Team Providers Name Role Phone [...] Clinical Status Follow-Up, Routine - Encounter for screening of - mother 21 weeks gestation of - Encounter for [...] Antepartum - Active Active Procedures Procedure Date Ultrasound exam of preg uterus, complete Results Test Name Date and Time Measure Units Reference Range Abnormal Flag Comments Unknown Advance Directives Directive Yes / No Effective Date File Name Unknown Encounters Encounter Practice Location Reason(s) Diagnoses Date Provider Care Team Description For Visit Members Jamar Brewer Encounter for Aug-0 Enrique Referring In Womens suprvsn of normal 3-201 [place]. 700 Provider: Saeed LARIOS, , second 7 Medical Barbara PO Box [id number] weeks [facility], 700 1522, gestation of Bhavik Pena, 120, [place] Amaya, [facility] 120, , Osman [place], [id number] [place], tel: , [place]. [id number]. tel: tel: [phone] Jamar Brewer Encounter for Aug-0 Enrique Referring In Womens Ultrasound 3-201 [place]. 700 Provider: Saeed LARIOS, screening of 7 Medical Barbara PO Box [id number] weeks [facility], 700 1522, gestation of Bhavik Pena, 120, [place] Amaya, [facility] 120, , Osman S[place]LEY, [id number] [place], tel: , [place]. [id number]. tel: tel:[phone] Jamar Brewer Encounter for Louis-2 Enrique Referring In Womens suprvsn of normal 7-201 [place]. 700 Provider: Saeed LARIOS, , second 7 Medical Barbara PO Box [id number] weeks [facility], 700 1522, gestation of Bhavik Pena, 120, [place] Amaya, [facility] 120, , [place] SMILEY, [id number] [place], tel: , [place]. [id number]. tel: tel:[phone] Jamar Brewer Encntr screen for Louis-0 Enrique Referring In Womens infections w sexl 8-201 [place]. 700 Provider: Saeed LARIOS, mode of 7 Medical Barbara PO Box transmissEncounte [facility], 700 1522, r for screening Bhavik Pena, for oth 120, [place] Dr [place], infec/parastc [place], [facility] 120, [id number], [facility] [place], Brewer, for suprvsn of [id number] [place], tel: normal , , [place]. [id number]. first tel: tel: [facility]Encencino [facility] cent[facility] [phone] r for screening of [id number] weeks gestation of Jamar Brewer Apr- Enrique Referring In Womens Follow-Up, 3- [place]. 700 Provider: Health HARRIET, Routine 5 Medical Barbara PO Box Center [facility], [facility] 1522, , [facility], 120, [address] [place], [place], [facility] 120, [id number], [place], Brewer, [id number] [place], tel: , [place]. [id number]. tel: tel: [phone] Jamar Brewer Routine Care, Mar-0 Enrique Referring In Womens [id number] 1- [place]. 700 Provider: Health HARRIET, weeks gestation 5 Medical Barbara PO Box of [facility], [facility] 1522, , [facility], 120, Center [place] Amaya, [facility] 120, [id number], [place], Brewer, [id number] [place], tel: , [place]. [phone]. tel: tel: [phone] Jamar Brewer Sep-0 Enrique Referring In Womens 9-201 [place]. 700 Provider: Health HARRIET, 5 [facility] Enrique R, 1522, , [address], 120, Medical [place] SMILEY, [place] [id number], [place], [facility] 120, [place] [id number] [place], tel: , [place]. [place] tel: [phone] tel:[phone] Jamar Brewer Jul-2 Enrique Referring In Womens 5-201 [place]. 700 Provider: Health HARRIET, 5 Medical Barbara PO Box [facility], [facility] 1522, , [facility], 120, Center [place] Amaya, [facility] 120, [id number], [place], Brewer, [id number] [place], tel: , . [phone]. [phone] tel: tel: [phone] Jamar Brewer Jaye Referring In Womens 1-201 [place]. Provider: Saeed LARIOS, 5 700 Barbara PO Box Medical Jaye, 700 1522, [place] [address], Bhavik [place] [address] [place], 120, Bhavik 120, [id number], [place] Brewer, [place], tel: [phone]. [phone] , . tel: tel: [phone] Family History Family Member Diagnosis Age At [...] name Insurance type Covered libertarian ID Authorization(s) [facility] [id number] [facility] [id number] Social History Type Description Quantity Date Captured [...] Status Appointment Sreedhar Lou BOOKED Future Order: Radiology Order Complete OB Ultrasound > 14 Ordered Weeks ([id number]) Future Order: Lab Order Pap Smear With HPV Reflex If ASCUS Ordered (WPMPap1) Date Type Problem Goal Intervention Status Start [...]
--- OUTSIDE RECORDS SUMMARY | 2017-05-15 01:34 | External Medical Summary | Continuity of Care Document ---
:1985 Author Organization [facility] Address [address] [place], [place] [address] Phone Care Team Providers Name Role Phone [...] suprvsn of normal - , third trimester Encounter For Screening For - Streptococcus B 36 weeks gestation of - Encounter for suprvsn [...] suprvsn of normal - , third trimester 37 weeks gestation of - Encounter for suprvsn of normal - , third trimester 29 weeks gestation of - Encounter for suprvsn of normal - , third trimester 38 weeks gestation of - Encounter for screening of - mother 21 weeks gestation of - Threatened , Antepartum - Active Active Procedures Procedure Date OB Visit No Charge Cult, pathgnc orgnsm, screen Results Test Name Date and Time Measure Units Reference Range Abnormal Flag Comments Panel Description: STREPTOCOCCUS, GROUP B CULTURE STREPTOCOCCUS, GROUP SEE NOTE STREPTOCOCCUS, GROUP B CULTURE B CULTURE 16:18:00 MICRO NUMBER: [id number] TEST STATUS: FINAL SPECIMEN SOURCE: VAGINAL/ANORECTAL SPECIMEN QUALITY: ADEQUATE RESULT: No group B Streptococcus isolatedREPORT COMMENT:FASTING:UNKNOWNTest performed at [facility] [id number] [place] [address]Ajqqtwxa: JOSE ALBERTO VAZQUEZ DO,MPH Advance Directives Directive Yes / No Effective Date File Name Unknown Encounters Encounter Practice Location Reason(s) Diagnoses Date Provider Care Team Description For Visit Members Jamar Brewer Encounter for Enrique Referring In Womens suprvsn of normal 8-201 [place]. 700 Provider: Health PA, , third 7 Medical Barbara PO Box [id number] weeks Center [place], [facility] 1522, gestation of Bhavik Pean [place], 120, Center [place] Amaya, [facility] 120, [id number], [place], [id number] [place], tel:-[phone] , . [id number] tel: tel: [phone] Jamar Brewer Encounter for Nov-2 Enrique Referring In Womens suprvsn of normal 1-201 [place]. 700 Provider: Health HARRIET, , third 7 Medical Barbara PO Box [id number] weeks [facility], 700 1522, gestation of Bhavik Pena, 120, Center [place] Amaya, Bhaivk 120, [id number], [place], [id number] [place], tel: , [place]. [id number]. tel: tel: [phone] Jamar Brewer Encounter for Nov-1 Enrique Referring In Womens suprvsn of normal 4-201 [place]. 700 Provider: Health HARRIET, , third 7 Medical Barbara PO Box trimesterEncounte [facility], [facility] 1522, r For Bhavik Pena [facility] [place], Screening For 120, Center Dr [place], Streptococcus B36 [place], Bhavik 120, [id number], weeks gestation Osman SMILEY, of [id number] [place], tel: , [place]. [id number]. tel: tel: [phone] Jamar Brewer Encounter for Oct-3 [place] Referring In Womens suprvsn of normal 0-201 [place]. Provider: Health PA, , third 7 700 [place] PO Box [id number] weeks Medical Enrique R, 1522, gestation of [address], [facility] [address], [facility] [place], Suite Center , 120, Bhavik 120, [place] Brewer, tel: [place], [address], [id number]. [place]. tel: tel: [phone] Jamar Brewer Encounter for Oct-1 Nerique Referring In Womens suprvsn of normal 3-201 [place]. 700 Provider: Health HARRIET, , third 7 Medical Barbara PO Box weeks [facility], 700 1522, gestation of Bhavik Pena, 120, Center [place] Amaya, Bhavik 120, [id number], [place], [place] [id number] [place], tel: , [place]. [phone]. tel: tel:+ [phone] Jamar Brewer Sep-2 Enrique In Womens 9-201 [place]. 700 Health PA, 7 Medical PO Box Center 1522, Bhavik Pena, 120, [place], [place], [id number], [place], [place] [id number] tel: , [place]. tel: [phone] Jamar Brewer Encounter for Sep-2 Enrique Referring In Womens suprvsn of normal 8-201 [place]. 700 Provider: Health [place], , third 7 Medical Barbara PO Box [id number] weeks [facility], [facility] 1522, gestation of Bhavik Pena, 120, Center Dr [place], [place], [facility] 120, , [place], [id number] [place], tel:+ , [place]. [phone]. tel: tel:[phone] Brewer Encounter for Aug-3 Enrique Referring In Womens suprvsn of normal 1-201 [place]. 700 Provider: Health PA, , second 7 Medical Barbara PO Box [id number] weeks [facility], [facility] 1522, gestation of Bhavik Pena, 120, Center [place] Amaya, [facility] 120, , [place], [place] [id number] [place], tel:+ , [place]. [id number]. tel: tel:[phone] Brewer Encounter for Aug-0 Enrique Referring In Womens suprvsn of normal 3-201 [place]. 700 Provider: Health [place], , second 7 Medical Barbara PO Box [id number] weeks [facility], [facility] 1522, gestation of Bhavik Pena, 120, Center [place] Amaya, [facility] 120, [id number], [place], [place] [id number] [place], tel:+ , [place]. [id number]. tel: tel:[phone] Jamar Brewer Encounter for Aug-0 Enrique Referring In Womens Ultrasound 3-201 [place]. 700 Provider: Health PA, screening of 7 Medical Barbara PO Box [id number] weeks Center [facility], 700 1522, gestation of Dr, Bhavik Andino, 120, Center Dr [place], [place], [facility] 120, [id number], [place], [place], [id number] [place], tel: , [place]. [id number]. tel: tel:+ [phone] Jamar Brewer Encounter for Louis-2 Enrique Referring In Womens suprvsn of normal 7-201 [place]. 700 Provider: Saeed LARIOS, , second 7 Medical Barbara PO Box [id number] weeks [facility], 700 1522, gestation of Dr, Bhavik Andino, 120, Center Dr [place], [place], [place] [address], [id number], [place], Brewer, [id number] [place], tel: , [place]. [phone]. tel: tel: [phone] Jamar Brewer Encntr screen for Louis-0 Enrique Referring In Womens infections w sexl 8-201 [place]. 700 Provider: Saeed LARIOS, mode of 7 Medical Barbara PO Box transmissEncounte [facility], 700 1522, r for screening , Bhavik Andino, for oth 120, Center Dr [place], infec/parastc [place] [address], , [facility], for suprvsn of [id number] [place], tel: normal , , [place]. [id number] first tel: tel: trimesterEncounte [phone] r for screening of airsar29 weeks gestation of Jamar Brewer Nov-1 Enrique Referring In Womens Follow-Up, 3-201 [place]. 700 Provider: Saeed LARIOS, Routine 5 Medical Barbara PO Box [facility], 700 1522, Bhavik Pena, 120, Center [place] Amaya, [facility] 120, [id number], [place], Brewer, [id number] [place], tel: , [place]. [id number]. tel: tel:[phone] Jamar Brewer Routine Care, Mar- Enrique Referring In Womens [id number] - [place]. 700 Provider: Health HARRIET, weeks gestation 5 Medical Barbara PO Box of [facility], 700 1522, , [facility] [place], 120, [address] S[place], [place], [facility] 120, [id number], [place], [place], [id number] [place], tel: , [place]. [id number]. tel: tel: [phone] Jamar Brewer Sep-0 Enrique Referring In Womens 9-201 [place]. 700 Provider: Health HARRIET, 5 [facility] Box [facility] Enrique Parada, 1522, , [place] [address] [place], 120, Medical [place] S[place], [facility] [id number], [place], [facility] 120, [place] [id number] [place], tel: , [place]. [place], tel: [phone]. [phone] tel:[phone] Jamar Brewer Jul-2 Enrique Referring In Womens 5-201 [place]. 700 Provider: Health HARRIET, 5 Medical Barbara PO Box [facility], 700 1522, , [facility] [place], 120, Center [place] Amaya, [facility] 120, [id number], [place], [place], [id number] [place], tel: , . [id number]. tel: tel: [phone] Brewer Jul- Jaye Referring In Womens -201 [place]. Provider: Health HARRIET, 5 [facility] Barbara PO Box [facility], 700 1522, [facility] [address], [facility] Dr [place], 120, Bhavik 120, [id number], [place] Brewer, [place], [place], tel:[phone]. , [place]. tel: tel: [phone] Family History Family Member Diagnosis Age At [...] Record Payers Payer name Insurance type Covered democrat ID Authorization(s) [facility] [place] [id number] [facility] [place] [id number] [facility] [place] [id number] [place] [id number] Social History Type Description Quantity Date Captured Alcohol Use Details No Caffeine Use Details Unknown Tobacco Use Status Unknown Smoking Status Never smoker Vital Signs Date / Height Weight BMI Pulse Blood Temperature Respiratory Body Head BMI Time: Rate Pressure Rate Surface Circumference percentile Area 152.80 38.2 133/ lbs 4 mm[Hg] 4:04 kg/m PM eter (2) Chief Complaint And Reason For Visit Unknown Chief Complaint And Reason For Visit Reason For Referral Reason For Referral Unknown Plan Of Care Date Type Action Status Appointment Sreedhar Lou BOOKED Future Order: Lab Order Pap Smear With HPV Reflex If ASCUS Ordered (WPMPap1) Future Order: Radiology Order Complete OB Ultrasound > 14 Ordered Weeks ([id number]) Date Type Problem Goal Intervention Status Start [...]
--- OUTSIDE RECORDS SUMMARY | 2017-05-15 01:34 | External Medical Summary | Referral Summary ---
:1985 Author Organization [facility] [address] [place] [address] Care Team Providers Name Role Phone JoannemarkelTristan Primary Care Physician Encounter VC Date(s): 06/18/15 - 06/18/15 [facility] [address] [place] [address] [place] Discharge Diagnosis: Vaginal discharge Discharge Diagnosis: Abdominal pain, lower Discharge Disposition: 01-Home or Self Care Attending Physician: Shruthi Vera PA-C Admitting Physician: Shruthi Vera PA-C Vital Signs Most recent to oldest [Reference Range]: 1 Temperature Tympanic [36.6-38.1 degC] 37.5 degC (06/18/15 3:54 PM) Peripheral Pulse Rate [60-100 bpm] 68 bpm (06/18/15 3:54 PM) Blood Pressure [90-140/60-90 mmHg] 120/76 mmHg (06/18/15 3:54 PM) Problem List Condition Effective Dates Status Health Status Informant Chronic chest wall pain(Confirmed) Active Chronic neck pain(Confirmed) Active Allergies, Adverse Reactions, Alerts No Known Medication Allergies Medications Sprintec tabs, Oral, Daily, 0 Refill(s) Start Date: 06/18/15 Status: Ordered Results Urinalysis Most recent to oldest [Reference Range]: 1 UA Color Yellow (06/18/15 4:45 PM) UA Appear Clear (06/18/15 4:45 PM) UA pH [5.0-8.0] 6.0 (06/18/15 4:45 PM) UA Leuk Est [Negative] Negative (06/18/15 4:45 PM) UA Nitrite [Negative] Negative (06/18/15 4:45 PM) UA Protein [Negative] Negative (06/18/15 4:45 PM) UA Glucose [Negative] Negative (06/18/15 4:45 PM) UA Ketones [Negative] Pos 2+ *ABN* (06/18/15 4:45 PM) UA Urobilinogen [<1.0 mg/dL] 0.2 mg/dL (06/18/15 4:45 PM) UA Bili [Negative] Negative (06/18/15 4:45 PM) UA Blood [Negative] Negative (06/18/15 4:45 PM) UA Spec Grav [1.003-1.030] 1.025 (06/18/15 4:45 PM) Type Clean Catch (06/18/15 4:45 PM) Immunizations Vaccine Date Refusal Reason tetanus/diphth/pertuss (Tdap) adult/adol 09/17/11 influenza virus vaccine, inactivated 04/04/14 Procedures No data available for this section Social History Social History Type Response Smoking Status Never smoker Assessment and Plan Extracted from: Title: Ambulatory Patient Education Author: Shruthi Vera PA-C Date: Obstetrics and Gynecology Abdominal Pain, Women Abdominal [...] can be observed and treated at home. Wlsm-ahd-xhglhba medicines recommended by your caregiver. Prescription medicine. Antibiotics, for infection. control pills, for painful periods or for ovulation pain. Hormone treatment, for endometriosis. Nerve blocking injections. Physical therapy. Antidepressants. Counseling with a psychologist or psychiatrist. Minor or major surgery. HOME CARE INSTRUCTIONS Do not take laxatives, unless directed by your caregiver. Take wpzl-wdo-mvvaneh pain medicine only if ordered by your [...] 03/19/2008 Document Revised: 10/07/2014 Document Reviewed: 04/09/2010 [facility] Patient Information 2015 [employer]. This information is not intended to replace advice given to you by your health care provider. Make sure you discuss any questions you have with your health care provider. No follow up information was provided. Extracted from: Title: Office Visit Note- Vaginal Author: Shruthi Vera PA-C Date: discharge Assessment/Plan Abdominal pain, lower, Abdominal pain, lower Will check UA today as well. RTC for further work up if not improving. Ordered: Hanging Drop Office Visit Level 3 Est 25393 Urinalysis with Culture if Indicated Vaginal discharge, Vaginal discharge Wet prep checked today and is pending.Will notify pt if medication is needed. Ordered: Hanging Drop Office Visit Level 3 Est 16715
--- OUTSIDE RECORDS SUMMARY | 2017-05-15 01:34 | External Medical Summary | Continuity of Care Document ---
:1985 Author Organization [facility] Address [address] [place], [place] [id number] Phone Care Team Providers Name Role Phone [...] 31 weeks gestation of - Encounter for screening of - mother 21 weeks gestation of - Threatened , Antepartum - Active Active Procedures Procedure Date OB Visit No Charge Hemoglobin count, colorimetric Hematocrit blood count Glucose test Venpnctr fngr/heel/ear stick routne Results Test Name Date and Time Measure Units Reference Range Abnormal Flag Comments Panel Description: Glucose [Mass/volume] in Serum or Plasma --1 hour post 50 g glucose PO GLUCOSE, 123 mg/dL <140 N Test performed at [employer] GESTATIONAL SCREEN 16:14:00 DIAGNOSTICS [id number] ([id number])-[address] [place] [address]Zjskails: JOSE ALBERTO VAZQUEZ DO,MPH Panel Description: HEMOGLOBIN + HEMATOCRIT HEMOGLOBIN 16:14:00 10.0 g/dL 11.7-15.5 L HEMATOCRIT 16:14:00 28.6 % 35.0-45.0 L REPORT COMMENT:FASTING :NOTest performed at [facility] [id number] [place] [address]Xfoydkgg: JOSE ALBERTO VAZQUEZ DO,MPH Advance Directives Directive Yes / No Effective Date File Name Unknown Encounters Encounter Practice Location Reason(s) Diagnoses Date Provider Care Team Description For Visit Members Jamar Brewer Encounter for Enrique Referring In Womens suprvsn of normal 3-201 [place]. 700 Provider: Health PA, , third 7 Medical Barbara [address] [email or web address] weeks [place], 700 1522, gestation of Bhavik [place], 120, Center [place] Amaya [facility] 120, [id number], [place], [id number] [place], tel: , [place]. [phone]. [id number] tel: tel: [phone] Brewer Sep-2 Enrique In Womens 9-201 [place]. 700 Health PA, 7 Medical PO Box Center 1522, Bhavik Pena, 120, [place], [id number], [place], [place] [id number] tel: , [place]. tel: [phone] Jamar Brewer Encounter for Sep-2 Enrique Referring In Womens suprvsn of normal 8-201 [place]. 700 Provider: Health HARRIET, , third 7 Medical Barbara [address] [email or web address] weeks [facility], 700 1522, gestation of Bhavik Pena, 120, Center [place] Amaya, [facility] 120, [id number], [place] [id number] [place], tel: , [place]. [id number]. tel: tel:+ [phone] Jamar Brewer Encounter for Aug-3 Enrique Referring In Womens suprvsn of normal 1-201 [place]. 700 Provider: Health HARRIET, , second 7 Medical Barbara [address] [email or web address] weeks [facility], 700 1522, gestation of Bhavik Pena, 120, Center [place] Amaya, [facility] 120, [id number], [place] [id number] [place], tel:+ , [place]. [id number]. tel: tel:+ [phone] Jamar Brewer Encounter for Aug-0 Enrique Referring In Womens suprvsn of normal 3-201 [place]. 700 Provider: Health HARRIET, , second 7 Medical Barbara [address] Box [id number] weeks [facility], 700 1522, gestation of Bhavik Pena, 120, Center [place] Amaya, [facility] 120, [id number], [place] [id number] [place], tel: , [place]. [id number]. tel: tel:[phone] Jamar Brewer Encounter for Aug-0 Enrique Referring In Womens Ultrasound 3-201 [place]. 700 Provider: Saeed LARIOS, screening of 7 Medical Barbara [address] [email or web address] weeks [facility], 700 1522, gestation of Bhavik Pena, 120, Center [place] Am[place], [facility] 120, [id number], [place], [id number] [place], tel: , [place]. [id number]. tel: tel:+ [phone] Jamar Brewer Encounter for Louis-2 Enrique Referring In Womens suprvsn of normal 7-201 [place]. 700 Provider: Saeed LARIOS, , second 7 Medical Barbara [address] [email or web address] weeks [place], 700 1522, gestation of Dr [facility] Javi Andino, 120, Center [place] Amaya, [facility] 120, [id number], [place], [place] [id number] [place], tel: , [place]. [id number]. tel: tel:+ [phone] Jamar Brewer Encntr screen for Louis-0 Enrique Referring In Womens infections w sexl 8-201 [place]. 700 Provider: Saeed LARIOS, mode of 7 Medical Barbara PO Box transmissEncounte [facility], 700 1522, r for screening Bhavik Pena, for oth 120, [address] [place], infec/parastc Brew[place], [facility] 120, [id number], diseasesEncounter [place], for suprvsn of [id number] [place], tel:+ normal , , [place]. [id number]. first tel: tel: trimesterEncounte [phone] r for screening of [id number] weeks gestation of Jamar Brewer Nov-1 Enrique Referring In Womens Follow-Up, 3-201 [place]. 700 Provider: Saeed LARIOS, Routine 5 Medical Barbara PO Box [facility], 700 1522, Bhavik Pena, 120, Center [place] Amaya, [facility] 120, [id number], [place], [id number] [place], tel:+ , [place]. [phone]. tel: tel:[phone] Jamar Brewer Routine Care, Oct-0 Enrique Referring In Womens [id number] 1-201 [place]. 700 Provider: Health HARRIET, weeks gestation 5 Medical Barbara PO Box of Center Jay[place], 700 1522, , [facility], 120, Center [place] Amaya, [facility] 120, [id number], [place], [place], [id number] [place], tel: , . [id number]. tel: tel: [phone] [facility] [place] Sep-0 Enrique Referring In Womens 9-201 [place]. 700 Provider: Health HARRIET, 5 [facility] [address] [place] Enrique R, 1522, , [place] [address] [place], 120, Medical [place], [place] [id number], [place], [facility] 120, [place] [id number] [place], tel: , [place]. [place], tel: [phone]. [id number] tel:[phone] [facility] [place] Feb-2 Enrique Referring In Womens 5-201 [place]. 700 Provider: Health HARRIET, 5 Medical Barbara PO Box [facility], 700 1522, , [facility] [place], 120, Center [place] Amaya, [facility] 120, [id number], [place], [id number] [place], tel: , . [id number]. tel: tel: [phone] Jamar Brewer Fe-1 Jaye Referring In Womens 1-201 [place]. Provider: [facility] HARRIET, 5 [facility] Barbara PO Box [facility], 700 1522, [place] [address], [facility] Dr [place], 120, Bhavik 120, [id number], [place], [place], tel: [phone]. , [place]. tel: tel: [phone] Family History Family Member Diagnosis Age At [...] Insurance type Covered alliance party ID Authorization(s) [place] [id number] [place] [id number] [place] [id number] Social History Type Description Quantity Date Captured Alcohol Use Details No Caffeine Use Details Unknown Tobacco Use Status Unknown Smoking Status Never smoker Vital Signs Date / Height Weight BMI Pulse Blood Temperature Respiratory Body Head BMI Time: Rate Pressure Rate Surface Circumference percentile Area 145.30 36.3 124/ lbs 6 mm[Hg] 3:33 kg/m PM eter (2) Chief Complaint And Reason For Visit Unknown Chief Complaint And Reason For Visit Reason For Referral Reason For Referral Unknown Plan Of Care Date Type Action Status Appointment Sreedhar Lou BOOKED Future Order: Lab Order Pap Smear With HPV Reflex If ASCUS Ordered ([id number]) Future Order: Radiology Order Complete OB Ultrasound > 14 Ordered Weeks ([id number]) Date Type Problem Goal Intervention Status Start [...]
--- OUTSIDE RECORDS SUMMARY | 2017-05-15 01:34 | External Medical Summary | Continuity of Care Document ---
:1985 Author Organization [facility] Allergies Active Description Code Type Severity Reaction Onset Reported/ Identified Relationship Clinical to Patient Status Yes No Known 95927 3 N/A N/A Drug 0 Allergies Medications Medication Packaging Start Date Stop Date Route Dosage Sig Tablet 04/18/2015 11/08/2016 SPRINTEC take 1 tablet by oral route every day Tablet 03/08/2017 FERROUS SULFATE take 1 tablet by oral route 2 times every day Problems Date Dx Coded Attending Type Code Diagnosis Diagnosed By 01/06/2017 [place] Nunez Z36 Encounter for screening of mother 01/06/2017 [place] Nunez Z3A.21 21 weeks gestation of 04/04/2017 [place] Dsouza Z34.83 Encounter for L suprvsn of normal , third trimester 04/04/2017 [place] Dsouza3A.34 34 weeks L gestation of Procedures Code Description Performed By Performed On 03/11/2015 84613 Routine obstetric care 01/06/2017 07861 Ultrasnd exam of preg uterus, compl 03/18/2017 03804 Immuniz admnin, 1 vac, sngl/combo TDAP 03/18/2017 59061 VACCINE >7 IM OB 04/04/2017 64314 Visit No Charge Results Encounters ACCT No. Visit Discharge Status Pt. Type Provider Facility Loc./Unit Complaint Date/Time [id number] 05/10/2017 05/10/2017 [facility] Outpatient Enrique, 16:15:00 23:59:59 [place] [id number] 05/03/2017 05/03/2017 [facility] Outpatient Enrique, 16:15:00 23:59:59 [place] [id number] 04/26/2017 04/26/2017 [facility] Outpatient Enrique, 16:15:00 23:59:59 [place] [id number] 04/19/2017 04/19/2017 [facility] Outpatient Enrique, 16:15:00 23:59:59 [place] [id number] 04/04/2017 04/04/2017 [facility] Outpatient [place], 16:30:00 23:59:59 [place] Lechuga [id number] 03/18/2017 03/18/2017 [facility] Outpatient Enrique, 14:45:00 23:59:59 [place] [id number] 03/04/2017 03/04/2017 [facility] Outpatient Enrique, 09:00:00 23:59:59 [place] [id number] 03/03/2017 03/03/2017 [facility] Outpatient Enrique, 15:30:00 23:59:59 [place] [id number] 02/03/2017 02/03/2017 [facility] Outpatient Enrique, 16:30:00 23:59:59 [place] [id number] 01/06/2017 01/06/2017 [facility] Outpatient Enrique, 16:15:00 23:59:59 [place] [id number] 01/06/2017 01/06/2017 [facility] Outpatient Enrique, 15:45:00 23:59:59 [place] [id number] 11/30/2016 11/30/2016 [facility] Outpatient Enrique, 16:15:00 23:59:59 [place] [id number] 11/11/2016 11/11/2016 [facility] Outpatient Enrique, 13:15:00 23:59:59 [place] [id number] 04/18/2015 04/18/2015 [facility] Outpatient Enrique, 14:15:00 23:59:59 [place] [id number] 03/11/2015 03/11/2015 [facility] Outpatient Enrique, 09:57:00 23:59:59 [place] [id number] 03/06/2015 03/06/2015 [facility] Outpatient Enrique, 16:30:00 23:59:59 [place] [id number] 02/27/2015 02/27/2015 [facility] Outpatient Enrique, 16:20:00 23:59:59 [place] [id number] 02/18/2015 02/18/2015 [facility] Outpatient Enrique, 16:30:00 23:59:59 [place] [id number] 02/12/2015 02/12/2015 [facility] Outpatient Enrique, 15:30:00 23:59:59 [place] [id number] 01/31/2015 01/31/2015 [facility] Outpatient Enrique, 15:30:00 23:59:59 [place]
--- OUTSIDE RECORDS SUMMARY | 2017-05-15 01:34 | External Medical Summary | Continuity of Care Document ---
:1985 Author Organization [facility] Address [address] [place], [place] [phone] Phone Care Team Providers Name Role Phone [...] 36 weeks gestation of - Encounter for screening of - mother 21 weeks gestation of - Threatened , Antepartum - Active Active Procedures Procedure Date OB Visit No Charge - APPLICATION TESTER Immuniz admnin, 1 vac, sngl/combo 19 Yrs + Flu Vaccine - Quadrivalent Results Test Name Date and Time Measure Units Reference Range Abnormal Flag Comments Unknown Advance Directives Directive Yes / No Effective Date File Name Unknown Encounters Encounter Practice Location Reason(s) Diagnoses Date Provider Care Team Description For Visit Members Jamar Brewer Encounter for Enrique Referring In Womens suprvsn of normal 4-201 [place]. 700 Provider: Saeed LARIOS, , third 7 Medical Barbara PO Box trimesterEncounte [facility], [facility] 1522, r For Bhavik Pena [facility], Screening For 120, [address] [place], Streptococcus B36 Brew[place], Bhavik 120, [id number], weeks gestation [place], of [id number] [place], tel: , [place]. [id number]. tel: tel: [phone] Jamar Breewr Encounter for [place] Referring In Womens suprvsn of normal 0-201 [place]. Provider: Saeed LARIOS, , third 7 700 [place] [address] [email or web address] weeks Medical Enrique R, 1522, gestation of Center 700 [place], [facility] [place], Suite Center [id number], 120, Bhavik 120, [place], tel: [place], [address], [id number]. [place]. tel: tel: [phone] Jamar Brewer Encounter for Oct-1 Enrique Referring In Womens suprvsn of normal 3-201 [place]. 700 Provider: Health HARRIET, , third 7 Medical Barbara PO Box [email or web address] weeks [place] Jay[place], [facility] 1522, gestation of Bhavik Pena, 120, Center [place] Amaya, Bhvaik 120, [id number], [place], [place], [place] [id number] [place], tel: , [place]. [id number]. tel: tel: [phone] Jamar Brewer Sep-2 Enrique In Womens 9-201 [place]. 700 Health HARRIET, 7 Medical PO Box Center 1522, Bhavik Pena, 120, [place], [id number], [place], [place] [id number] tel: , [place]. tel: [phone] Jamar Brewer Encounter for Sep-2 Enrique Referring In Womens suprvsn of normal 8-201 [place]. 700 Provider: Health HARRIET, , third 7 Medical Barbara PO Box [email or web address] weeks [facility], [facility] 1522, gestation of Bhavik Pena, 120, Center [place] Amaya, Bhavik 120, [id number], [place] [id number] [place], tel: , [place]. [id number]. tel: tel: [phone] Jamar Brewer Encounter for Aug-3 Enrique Referring In Womens suprvsn of normal 1-201 [place]. 700 Provider: Health HARRIET, , second 7 Medical Barbara PO Box [id number] weeks [facility], [facility] 1522, gestation of Bhavik Pena, 120, Center [place] Amaya, Bhavik 120, [id number], [place], [place] [id number] [place], tel: , [place]. [id number]. tel: tel: [phone] Jamar Brewer Encounter for Aug-0 Enrique Referring In Womens suprvsn of normal 3-201 [place]. 700 Provider: Health HARRIET, , second 7 Medical Barbara PO Box [id number] weeks [facility], 700 1522, gestation of Bhavik [place], 120, Center [place] Amaya, [facility] 120, , [place], [id number] [place], tel: , [place]. [id number]. tel: tel:+ [phone] Jamar Brewer Encounter for Aug-0 Enrique Referring In Womens Ultrasound 3-201 [place]. 700 Provider: Saeed LARIOS, screening of 7 Medical Barbara PO Box [id number] weeks [facility], 700 1522, gestation of Bhavik Pena, 120, Center [place] Amaya, [facility] 120, , [place], [id number] [place], tel: , [place]. [id number]. tel: tel:+ [phone] Jamar Brewer Encounter for Louis-2 Enrique Referring In Womens suprvsn of normal 7-201 [place]. 700 Provider: Saeed LARIOS, , second 7 Medical Barbara PO Box [email or web address] weeks [facility], 700 1522, gestation of Bhavik Pena, 120, [place] Amaya, [facility] 120, [id number], [place], [id number] [place], tel: , [place]. [id number]. tel: tel:+ [phone] Jamar Brewer Encntr screen for Louis-0 Enrique Referring In Womens infections w sexl 8-201 [place]. 700 Provider: Saeed LARIOS, mode of 7 Medical Barbara PO Box transmissEncounte [facility], 700 1522, r for screening Bhavik Pena, for oth 120, Center [address] [place], infec/parastc [place], [facility] 120, , diseasesEncounter [place], for suprvsn of [id number] [place], tel: normal , , [place]. [id number]. first tel: tel:+[phone] trimesterEncounte [phone] r for screening of weeks gestation of Jamar Brewer Nov-1 Enrique Referring In Womens Follow-Up, 3-201 [place]. 700 Provider: Saeed LARIOS, Routine 5 Medical Barbara PO Box Center [facility], 700 1522, , [facility] [place], [address], [address] [place], [place], [facility] 120, [id number], [place], [place], [id number] [place], tel: , [place]. [id number]. tel: tel:[phone] Jamar Brewer Routine Care, Mar-0 Enrique Referring In Womens [id number] 1-201 [place]. 700 Provider: Saeed LARIOS, weeks gestation 5 Medical Barbara PO Box of Center [facility], 700 1522, , [facility] [place], [address], [address] [place], [place], [facility] 120, [id number], [place], [place], [id number] [place], tel: , [place]. [phone]. tel: tel:[phone] Jamar Brewer Feb-0 Enrique Referring In Womens 9-201 [place]. 700 Provider: Health HARRIET, 5 [facility] Box [place] Enrique R, 1522, , [address], 120, Medical [place], [place] [id number], [place], [facility] 120, [place] [id number] [place], tel: , [place]. [place], tel: [phone]. [id number] tel:[phone] Jamar Brewer Jul-2 Enrique Referring In Womens 5-201 [place]. 700 Provider: Health HARRIET, 5 Medical Barbara PO Box [facility], 700 1522, , [facility] [place], [address], [address] [place], [place], [facility] 120, [id number], [place], [place], [id number] [place], tel: , [place]. [id number]. tel: tel:[phone] Brewer Jul- Jaye Referring In Womens 1-201 [place]. Provider: Saeed LARIOS, 5 [facility] Barbara PO Box [facility], 700 1522, [place] [address], [facility] Dr [place], [address], [facility] 120, [id number], [place], [place], tel:[phone]. [phone] , . tel: tel: [phone] Family History Family Member Diagnosis Age At [...] Record Payers Payer name Insurance type Covered green party ID Authorization(s) [facility] [id number] [facility] [id number] [facility] [id number] [facility] [id number] Social History Type Description Quantity Date Captured Alcohol Use Details No Caffeine Use Details Unknown Tobacco Use Status Unknown Smoking Status Never smoker Vital Signs Date / Height Weight BMI Pulse Blood Temperature Respiratory Body Head BMI Time: Rate Pressure Rate Surface Circumference percentile Area 148.40 37.1 118/2017 lbs 4 mm[Hg] 4:36 kg/m PM eter (2) Chief Complaint And [...] Complete OB Ultrasound > 14 Ordered Weeks (05368) Date Type Problem Goal Intervention Status Start [...]
[2017-05-15] MEDS: LR 1,000 ML IV PRN ×3 (01:56→07:28)
[2017-05-15] MEDS ORDERED: OXYTOCIN DRIP 30 UNIT/500 ML ML IV PRN (04:05)
[2017-05-15] MEDS ORDERED: D5LR 1,000 ML IV PRN (04:05)
--- NOTE | 2017-05-15 04:48 | Anesthesia Preoperative Report ---
Anesthesia Epidural/Spinal Rec - Date and Time Date: 05/15/17 Preoperative Diagnosis: term labor Procedure: Labor Epidural Plan: Epidural - Vital Signs Vital Signs: Temperature 98.3 F 05/15/17 01:59 Pulse Rate 115 H 05/15/17 01:59 Respiratory Rate 18 05/15/17 01:59 Blood Pressure 133/82 05/15/17 01:59 Pulse Oximetry 100 05/15/17 01:59 NPO since: 2229 /Para: P:1 Heart Rate: 129 Height and Weight: 5' 3" 155 lbs - Medictaions & Allergies Inpatient Medications: Current Medications Acetaminophen (Tylenol) 500 - 1,000 mg PO Q4H PRN PRN Reason: Pain Al Hydroxide/Mg Hydroxide (Maalox Plus) 30 ml PO Q3H PRN PRN Reason: Indigestion Calcium Carbonate (Tums) 500 - 1,000 mg PO Q2H PRN PRN Reason: Indigestion Carboprost Tromethamine (Hemabate) 250 mcg IM O PRN PRN Reason: .Downtime Lactated Ringer's (Lactated Ringers) 1,000 mls @ 999 mls/hr IV .Q1H1M PRN Last Admin: 05/15/17 04:04 Dose: 999 mls/hr Dextrose/Lactated Ringer's (Dextrose 5%-Lactated Ringers) 1,000 mls @ 125 mls/ hr IV .Q8H PRN PRN Reason: Labor Oxytocin (Pitocin Drip) 30 unit in 500 mls @ 2 mls/hr IV .Q24H PRN; Protocol PRN Reason: Induction/Augmentation Last Admin: 05/15/17 04:08 Dose: 2 mls/hr Lidocaine HCl (Xylocaine-Mpf 1% Vial) 0.2 mg ID O PRN PRN Reason: IV Start Methylergonovine Maleate (Methergine) 0.2 mg IM O PRN Misoprostol (Cytotec) 800 mcg OH ONCE PRN Allergies/Adverse Reactions: Allergies Allergy/AdvReac Type Severity Reaction Status Date / Time No Known Allergies Allergy Unverified 03/10/15 21:42 - Home Medications Home Medications: Home Medications Medication Instructions Recorded Confirmed Type Pnv No.95/Ferrous Fum/Folic AC 1 tab PO DAILY #0 tab 10/06/15 History [ Vitamins Tablet] Iron 05/02/17 History Tums 05/02/17 History Tylenol 05/02/17 History - Medical History Other History: Reports: Now - Surgical History Reproductive Surgery/Treatment: DENIES: Section Anesthesia Reactions: None Hx Family Anesthesia Reaction: No History of Motion Sickness: No - Social History Smoking Status: Never smoker Second Hand Exposure: No Substance Use Type: does not use Alcohol Intake Frequency: does not drink - Pertinent Findings Lab Data: CBC and BMP 05/15/17 01:57 - Physical Exam Respiratory Exam: lungs clear Cardiovascular Exam: regular rate and rhythm - Airway Assessment Mallampati Score: II Neck Extension: good Overall Assessment: no airway concerns - ASA ASA Score: 2 - Discussion Discussion: Discussed risks/options/alternatives of anesthesia and questions answered. Patient consents. Nursing pain assessment noted. Anesthesia Discussion: spouse Attestation Statement: Prior to the delivery of any anesthetic medication, I examined the patient, developed the plan, obtained the patient's consent and discussed the risk and benefits of the procedure with the patient/guardian.
[2017-05-15] MEDS ORDERED: ONDANSETRON 4 MG/2 ML INJECTION IVP PRN (04:50)
[2017-05-15] MEDS ORDERED: DiphenhydrAMINE 50 MG/ML INJECTION IVP PRN (04:50)
[2017-05-15] MEDS ORDERED: NALOXONE 0.4 MG/ML INJECTION IVP PRN (04:50)
[2017-05-15] MEDS ORDERED: ROPIVACAINE 1% 10MG/ML INJ 200 MG, SUFentanil 50 MCG in NS 100 ML EPI PRN (04:50)
[2017-05-15 06:12] VITALS: BMI 25.7
[2017-05-15] MEDS ORDERED: HYDROCORTISONE 2.5% CREAM 30gm RECTALLY PRN (10:42)
[2017-05-15] MEDS ORDERED: BENZOCAINE 20% SPRAY 0.5 ML MM ONE (10:42)
[2017-05-15] MEDS ORDERED: DiphenhydrAMINE 25 MG CAPSULE PO PRN (10:42)
--- NOTE | 2017-05-15 10:49 | Anesthesia Postoperative Note ---
- Date and Time Date: 05/15/17 Time: 10:45 - Status Patient Participated in Evaluation: Patient Participated in Person Vital Signs: Temperature 98.3 F 05/15/17 01:59 Pulse Rate 115 H 05/15/17 01:59 Respiratory Rate 18 05/15/17 01:59 Blood Pressure 133/82 05/15/17 01:59 Pulse Oximetry 100 05/15/17 01:59 Respiratory Function: Airway Patent, Regular Respirations Cardiovascular Function: Regular Pulse Mental Status: Alert and Oriented Pain Intensity: 0 Hydration: Taking PO Fluids Complications During Recover: None Apparent Post Anesthesia Care Notes: Patient comfortable with delivery. Moves all extremeties without problems. Chevy Cm CRNA - Follow-Up Instructions Instructions: Per Surgeon
[2017-05-15] MEDS: OXYTOCIN DRIP 30 UNIT/500 ML ML IV SCH ×2 (14:45→21:30)
[2017-05-15] MEDS: IBUPROFEN 800 MG TABLET PO PRN (16:12)
[2017-05-15 21:43] VITALS: RESP 16; O2SAT 98
[2017-05-16] MEDS: OXYTOCIN DRIP 30 UNIT/500 ML ML IV SCH (02:19)
[2017-05-16] MEDS: IBUPROFEN 800 MG TABLET PO PRN ×2 (02:20→12:56)
--- NOTE | 2017-05-16 07:16 | Labor and Delivery Note ---
DATE OF DELIVERY: 05/15/2017 DIAGNOSES 1. 32-year-old white female, G2, P1 at 40.0 weeks gestational age. 2. Spontaneous rupture of membranes. 3. Epidural anesthesia. 4. Pitocin augmentation. 5. Spontaneous vaginal delivery. 6. Very mild shoulder dystocia. 7. Male , 3544 g, 8/9 Apgars (Aj Mckenna). 8. Second-degree perineal laceration - repaired. BRIEF DESCRIPTION This a patient of mine who came in today with spontaneous rupture of membranes at 0030 hours. She was grossly ruptured when she arrived. She was admitted and she was juaquin, so I waited to see if there was cervical change and when there was not then we started Pitocin augmentation. It got to a maximum of 6 milliunits a minute. She received an epidural block. Pitocin was turned on and off several times during the course of labor for a variety of reasons. She finally made it to complete dilation and we began pushing. Shortly thereafter, we had a spontaneous vaginal delivery from the OA position. was bulb suctioned after delivery of the head. There was a turtle sign after delivery of the head, so we did Liz maneuver and were able to deliver the left shoulder anteriorly. There was a pop present, so I'm going to Dr. Drake check for a clavicle fracture. Apgars were 8/9. After a [id number]-half the cord was doubly clamped and cut and the infant was initially placed on the mother's abdomen. Placenta delivered spontaneously and was intact. There was a second-degree perineal laceration that was repaired with 2-0 Vicryl and 3-0 chromic over the top. Maternal blood type is O+, rubella is immune and GBS is negative. MTDD
[2017-05-16 07:48] VITALS: BP 122/69; PULSE 83; TEMP 97.9
--- NOTE | 2017-05-16 08:29 | OB/GYN Progress Note ---
OB-PP Progress Note - General PPD1 - Subjective Date: 05/16/17 Lochia: Moderate Pain: controlled (Using Ibuprofen 800mg for cramping. ) Voiding: voiding Nausea or Vomiting Present: No - Objective Vital Signs: Last Vital Signs Temp 97.9 F 05/16/17 05:00 Pulse 83 05/16/17 05:00 Resp 16 05/16/17 05:00 BP 122/69 05/16/17 05:00 Pulse Ox 98 05/15/17 21:39 Urine Output: good General: alert and oriented Abdomen: fundus firm Extremities: non-tender Laboratory: Laboratory Results - last 24 hr 05/16/17 07:11 WBC 22.7 H RBC 3.54 L Hgb 10.4 L Hct 31.6 L MCV 89.3 MCH 29.4 MCHC 32.9 RDW Std Deviation 47.1 Plt Count 158 MPV 11.2 - Assessment Assessment: - Plan Plan: routine care, discharge home (Ibuprofen 800mg po TID prn. Has Ibuprofen at home and plans to use those pills. )
[2017-05-16] MEDS ORDERED: DOCUSATE CALCIUM 240 MG CAPSULE PO SCH (09:00)
== END 2017-05-16 14:30 | disposition home or self-care (01) | DRG 775 ==
LOC: OBOBS 01:29 → MC 01:30
PROVIDERS: ADMIT Obstetrics & Gynecology; ATTEND Obstetrics & Gynecology